=== PATIENT | female | born 1970 | race Caucasian/White ===

== ENCOUNTER 2024-07-16 08:22 | Outpatient (CLI) | payer OTHER | END 2024-07-16 23:59 | disposition home or self-care (01) | LOC: RAD 08:22 | PROVIDERS: ATTEND Podiatrist Foot & Ankle Surgery | DX: S93.401A Sprain of unspecified ligament of right ankle, initial encounter (principal); M25.471 Effusion, right ankle; M25.371 Other instability, right ankle; M25.571 Pain in right ankle and joints of right foot; M21.6X1 Other acquired deformities of right foot; R60.0 Localized edema; X58.XXXA Exposure to other specified factors, initial encounter; Y93.89 Activity, other specified; Y92.89 Other specified places as the place of occurrence of the external cause; Y99.8 Other external cause status | CPT/HCPCS: 73700 ==